=== PATIENT | female | born 1945 | race Caucasian/White ===

== ENCOUNTER → 2016-06-14 | Outpatient (CLI) | payer MEDICARE, MEDICAID ==
[~2016-06-14] MED LIST: ASA325 MG PO; BALANCED B-100100 MG PO; CALCIUM 600 +1 EAC3 PO; CELEXA DPS20 MG PO; CELEXA10 MG PO; CLARITIN DPS10 MG PO; COLACE-DPS100 MG PO; FEOSOL-DPS325 MG PO; KLONOPIN DPS0.5 MG PO; LORCET 5-325 M1 EACH PO; MAALOX DPS30 ML PO; MIRALAX PACKET17 GM PO; NORVASC5 MG PO; PERCOCET 5 DPS1 TAB PO; PROTONIX40 MG PO; REQUIP DPS2 MG PO; SENOKOT DPS8.6 MG PO; SENOKOT S1 TAB PO; SOD BICARB TAB650 MG PO; SURFAK DPS240 MG PO; SYNTHROID DP0.088 MG PO; THERA1 EACH PO; TUMS DPS500 MG PO; TYLENOL DPS325 MG PO; VISTARIL-DPS50 MG PO; ZOCOR DPS20 MG PO
== END | disposition home or self-care (01) ==
LOC: PTH.S 10:43
DX: Z01.812 Encounter for preprocedural laboratory examination (principal)

== ENCOUNTER 2016-06-22 09:58 | Inpatient (IN) | payer MEDICARE, MEDICAID ==
[~2016-06-22] VITALS: Ht 147.3 cm; Wt 79.9 kg
[~2016-06-22 09:58] MED LIST changes: -FEOSOL-DPS325 MG PO; -LORCET 5-325 M1 EACH PO
[2016-06-27] MEDS ORDERED: FEOSOL-DPS325 MG PO (11:23)
[2016-06-27] MEDS ORDERED: LORCET 5-325 M1 EACH PO (11:24)
--- NOTE | 2016-07-06 11:52 | OR ---
ADMIT: 06/22/2016 RM/LOC: [facility] MR#: [id number] [id number] [facility] [address] [place], [place] [address] [place] Donn [address] [address] Operative/Delivery Room Report SEX: F AGE: 71 : 1945 SURGERY DATE: 06/22/2016 SURGEON: Praful Cerrato MD PREOPERATIVE DIAGNOSIS: Right knee degenerative joint disease. POSTOPERATIVE DIAGNOSIS: Right knee degenerative joint disease. PROCEDURE: Right total knee arthroplasty with intra-articular local block. TRUCK WASHER: Sunny Nieves PA-C. ANESTHESIA: Spinal. ESTIMATED BLOOD LOSS: 50 mL. TOTAL TOURNIQUET TIME: 73 minutes. COMPLICATIONS: None. CONDITION: Fair to recovery room. INDICATION: The patient is a 71-year-old female, who is status post left total knee arthroplasty a couple months ago and has done very well with this. She is having significant severe pain in her right knee with degenerative joint disease and wants to proceed with right total knee arthroplasty as she has failed conservative treatment. We discussed the procedure as well as risks and benefits with her, questions were answered, and she agreed to proceed. IMPLANTS USED: We used a DePuy Sigma total knee arthroplasty size 2.5 Femoral component, size 2.5 tibial component, a 38 mm patellar button, and a 10 mm tibial insert. DESCRIPTION OF PROCEDURE: After informed consent was obtained, the patient was then taken to the operating room, placed on the operative table in supine position. The patient was then placed in a seated position. A spinal anesthetic was administered. After adequate spinal anesthesia, patient was replaced supine. A Talley catheter was placed and a tourniquet was placed on right upper thigh. Once this was completed, the right lower extremity was prepped and draped in the usual sterile fashion. We then exsanguinated the right lower extremity, inflated the tourniquet to 300 mmHg. The knee was then flexed. We made a midline incision through the skin and subcutaneous tissues making a bit of a medial flap here. Once this was completed, we then made a medial parapatellar incision to enter the knee joint. The suprapatellar synovitis and fat pad were excised at this point. Attention was then directed proximally where we did a medial release off the proximal tibia using Bovie electrocautery as well as a large elevator. Once this was completed, the patella was everted, knee flexed and we then excised the infrapatellar fat ADMIT: 06/22/2016 RM/LOC: [address] [facility] MR#: [id number] [address] [address] YVAN MOREIRA [address] [place] [id number] Operative/Delivery Room Report SEX: F AGE: 71 : 1945 pad. Medial and lateral retractors were then placed. The intramedullary drill was then placed in the femoral notch adjacent to the PCL insertion on the femur. We then drilled and placed the intramedullary guide. We then set this to remove 12 mm of distal bone and set at 5 degrees of valgus. This was then pinned into position and our distal femoral cut was then performed. Once this was completed, the tibial guide was then placed. Once this was in appropriate position, we pinned this and made our tibial cut. The tibial bone was then removed. The knee was then brought back into extension, placed a 10 mm extension block with good full extension and good stability with this. I then placed a construction project assistant and removed the remainder of the meniscus and other soft tissue here. Once this was all cleaned up, we then prepared the patella using the patellar cutting guide, set to remove 9.5 mm. We placed this on the patella clamp and everted the patella, and made our patellar cut, this sized to a size 38. We then drilled the lugs for the 38 patella. The knee was then flexed back up. We placed the femoral sizing guide and this sized to about a size 2.5. We then placed 2.5 four-in-one cutting guide after pinning this in 3 degrees of external rotation. We removed this 2 mm anteriorly and made our anterior, posterior, and chamfer cuts. Once this was completed, we then placed the box cutting guide for a size 2.5 Femoral component, pinned this into position and made our femoral box cut. Once this was completed, we then trialed using a 2.5 Femoral component, a size 2 tibial tray, and a 38 mm patellar button. We used a 10 mm tibial insert, good full extension, good flexion, excellent stability, and the patella did appear to track laterally here. We then performed a lateral release. The patella then tracked much better. Once this was completed, we removed the trial components. We once again flexed the knee up, placing medial and lateral retractors as well as a popliteal retractor, and sized the tibia to about a size 2.5. This was a good fit. We then placed a 2.5 Tibial tray, pinned this into position and prepared the proximal tibia using the reamer, followed by the keel punch. Once this was completed, the knee was then put back in extension, construction project assistant was placed, and we injected our local cocktail in the posterior medial and lateral capsules. Once this was completed, the components were then opened on the back table to include a 2.5 femoral component, a 2.5 tibial tray, and a 38 mm patellar button. The knee was then flexed back up. We copiously irrigated the cancellous bony ends using pulse lavage. We placed medial lateral popliteal retractors. We then dried the bone surfaces thoroughly. While we were doing this, the cement was being mixed on the back table and the components were opened on the table. Once the cement was ready, we finger packed this into the proximal tibia and into the keel hole. We then placed the tibial component, impacted this into position removing excess cement using a [place] elevator. Once this was completed, we placed cement onto the distal femur. I placed the femoral component, impacted this into position removing excess cement once again using a [place] elevator. We placed a 10 mm trial tibial insert, brought the knee into full extension, placed the heel on the table to let this cure. Once again, any excess cement was removed using a [place] elevator. Cement was then placed onto the patella, a 38 mm patellar button was placed followed by the patellar clamp. The excess cement was removed using a [place] elevator once again. Once this was completed, we ADMIT: 06/22/2016 RM/LOC: [address] [facility] MR#: [id number] [id number] [address] YVAN MOREIRA [address] [address] Operative/Delivery Room Report SEX: F AGE: 71 : 1945 copiously irrigated the knee once again. While the cement was curing, we injected additional local cocktail into the quad tendon, periosteum, and subcutaneous tissues. Once the cement was fully cured, we then took the knee through range of motion once again with good full extension, flexion past 120 degrees, excellent stability, and good tracking of the patella. The trial tibial component was then removed, and we elected to use a size 10 permanent tibial insert, tibial tray was thoroughly irrigated. The insert was placed into the tray impacted, and locked into position. The knee was copiously irrigated once again with pulse lavage. A medium Hemovac drain was then placed. We then closed the medial parapatellar incision using #1 Vicryl in a [id number] fashion. The subcutaneous tissues were then closed using 2-0 Vicryl in a simple interrupted fashion, and the skin with skin holli. A sterile compressive dressing was then applied consisting of Xeroform, plain gauze, ABDs, Webril, Woody wrap from the foot to the thigh. The patient was then transferred to recovery room in stable condition. Tourniquet was deflated for a total tourniquet time of 73 minutes at 300 mmHg. Praful Cerrato MD/ opal JOB #: [id number] CC: Praful Cerrato, Attending Physician Other Physician, Family Physician
--- NOTE | 2016-07-06 11:52 | HP ---
ADMIT: 06/22/2016 RM/LOC: [facility] MR#: [id number] [facility] [address] [place], [place] [address] YVAN MOREIRA [address] [address] Pre-OP History and Physical SEX: F AGE: 71 : 1945 DATE OF SERVICE: CHIEF COMPLAINT: Right knee pain. HISTORY OF PRESENT ILLNESS: The patient is a 71-year-old female, who is now over three months status post left total knee arthroplasty. Doing very well with this. She is having increased problems with her right knee at this point, interfering with activities. She is taking some tramadol for pain at this point and she would like to proceed with a right total knee arthroplasty causing her severe pain. Keeping her up at night. She is doing very well with her left knee replacement at this point. PAST MEDICAL HISTORY: Significant for elevated cholesterol, osteoarthritis, asthma, hypertension, and depression. CURRENT MEDICATIONS: Citalopram, senna, omeprazole, docusate sodium, loratadine, clonazepam, levothyroxine, ferrous sulfate, calcium, Lortab, ropinirole, simvastatin, amlodipine, omega-3, and Centrum Silver tablet. ALLERGIES: INCLUDE ASPIRIN. SOCIAL HISTORY: The patient is a former smoker. Drinks alcohol occasionally. Lives in [facility]. REVIEW OF SYSTEMS: Noncontributory. PHYSICAL EXAMINATION: HEENT: As per Dr. Vivar's preoperative medical evaluation. HEART: As per Dr. Vivar's preoperative medical evaluation. LUNGS: As per Dr. Vivar's preoperative medical evaluation. ABDOMEN: As per Dr. Vivar's preoperative medical evaluation. MUSCULOSKELETAL: Examination of the right knee shows mild varus alignment, tenderness in the medial knee, as well as the peripatellar region. Does have crepitus on knee range of motion. No gross instability, otherwise has pretty good range of motion, no difficulty short or full extension. Flexion about 125 degrees or so. IMAGING: X-rays of the right knee show severe degenerative change ADMIT: 06/22/2016 RM/LOC: [facility] MR#: [id number] [address] [address] YVAN MOREIRA [address] [address] Pre-OP History and Physical SEX: F AGE: 71 : 1945 particularly the medial compartment. Some laterally and some in the patellofemoral region. No acute fracture dislocations or other bony lesions noted. ASSESSMENT: Right knee degenerative joint disease. PLAN: At this point, the patient elected to proceed with a right total knee arthroplasty. We have scheduled this for her at [facility]. She is getting preop medical clearance by Dr. Vivar. We did discuss the procedure as well as risks and benefits with her at length. She is status post left total knee arthroplasty in the last couple months and is doing very well with this. Praful Cerrato MD/ opal JOB #: [id number] CC: Praful Cerrato, Attending Physician UNKNOWN, Family Physician
--- NOTE | 2016-07-07 08:23 | CO ---
ADMIT: 06/22/2016 RM/LOC: [facility] MR#: [id number] 26[address] [facility] [address] [place], [place] [address] YVAN MOREIRA [address] [address] Consultation Report SEX: F AGE: 71 : 1945 DATE OF CONSULTATION: 06/18/2016 ATTENDING PHYSICIAN: Praful Cerrato CONSULTING PHYSICIAN: Alexsander Vivar DO HISTORY OF PRESENT ILLNESS: This is a pleasant 71-year-old female patient, who presents today in preparation for left knee replacement. This will be performed by Dr. Cerrato on June 22. The patient has a medical history of hypothyroidism, anxiety, gastroesophageal reflux disease, restless legs syndrome, hyperlipidemia, hypertension, and chronic osteoarthritis. In January of 2016, she underwent a right knee replacement, which was uncomplicated and she is now back to proceed with her left knee. She denies any concerns in the interval. CURRENT MEDICINES: 1. Amlodipine. 2. Citalopram. 3. Levothyroxine. 4. Omeprazole. 5. Sodium bicarbonate. 6. Simvastatin. 7. Clonazepam. 8. Ropinirole. 9. Tramadol. 10.Loratadine. 11.Calcium. 12.Docusate. 13.Senna. 14.Ventolin. For specifics of dosing, please refer to her admission orders. SOCIAL HISTORY: She is independent but does have family available to help her with her postoperative cares. REVIEW OF SYSTEMS: She denies chest pain, shortness of breath, cough, sputum production. No fevers, chills, nausea, vomiting, diarrhea, constipation, hematemesis, hematochezia, or melena. PHYSICAL EXAMINATION: GENERAL: She is pleasant, alert, and in no apparent distress. VITAL SIGNS: Her blood pressure is 128/74, she weighs 160 pounds with a body mass index of 32.3. EAR, NOSE, AND THROAT: Normal. NECK: No JVD or bruit. HEART: Regular. LUNGS: Clear. ABDOMEN: Soft, nontender. EXTREMITIES: Reveal no edema and good pulses. ADMIT: 06/22/2016 RM/LOC: [facility] MR#: [id number] [address] [address] [place] [address] Consultation Report SEX: F AGE: 71 : 1945 LABORATORY DATA: Reviewed and she is moderately anemic with a hemoglobin of 10.4, which I suspect relates to her prior surgery and operative blood losses. She has otherwise healthy basic metabolic profile. IMPRESSION: 1. Hypertension, controlled. 2. Hypothyroidism. 3. Reflux. 4. Osteoarthritis. 5. Anemia. PLAN: I am going to use aspirin DVT prophylaxis. We will put her on iron now in preparation for her surgery on the . I will monitor her hemoglobin postoperatively. Alexsander Vivar DO/ opal JOB #: [id number] CC: Praful Cerrato, Attending Physician UNKNOWN, Family Physician
--- NOTE | 2016-07-23 09:25 | DS ---
ADMIT: 06/22/2016 RM/LOC: 530 [facility] MR#: [id number] [id number] [facility] [address] [place], [place] [address] YVAN MOREIRA [address] [address] General Discharge Summary SEX: F AGE: 71 : 1945 ADMISSION DATE: 06/22/2016 DISCHARGE DATE: 06/25/2016 REASON FOR ADMISSION: Elective right total knee arthroplasty after failing conservative care. PREOPERATIVE DIAGNOSIS: Right knee degenerative joint disease. POSTOPERATIVE DIAGNOSIS: Right knee degenerative joint disease. PROCEDURE PERFORMED: Right total knee arthroplasty. SURGEON: Praful Cerrato MD. ENGINE ROOM HELPER: Sunny Nieves PA-C. ANESTHESIA: Spinal. ESTIMATED BLOOD LOSS: 50 mL. COMPLICATIONS: None. ACTIVE MEDICAL PROBLEMS: Hypothyroidism, anxiety, gastroesophageal reflux disease, restless legs syndrome, hyperlipidemia, hypertension, chronic osteoarthritis. HOSPITAL COURSE: The patient was admitted on 06/22/2016, for elective right total knee arthroplasty done successfully without any complications by Dr. Cerrato. The patient tolerated the procedure well. Postoperatively, the patient complained of significant pain in her right knee as well as leg cramping. For this reason, Ultram, Tylenol, and oxycodone were discontinued and she was started on Percocet 5/325 mg as well as Vistaril 50 mg for pain, nausea, restlessness, itching, and rash. We also decided to hold physical therapy until the afternoon to give time for the pain medication to help with her pain control. Toradol 15 mg IV was also given per Dr. Cerrato to help with pain control that afternoon on postop day #1. On postop day #2, her pain was under better control and physical therapy resumed as normal per total knee arthroplasty protocol. She did as expected suffered from some mild acute blood- loss anemia. Her hemoglobin dropped to 9.1 on 06/25/2016, but she remained hemodynamically stable and not require blood transfusion. By postoperative day #3, she was safe and participated well with physical therapy. She was stable and ready for discharge home with plans for outpatient physical therapy. DISCHARGE MEDICATIONS: 1. Amlodipine 5 mg in the morning. 2. Levothyroxine 88 mcg every morning. 3. Citalopram 30 mg every morning. 4. Simvastatin 20 mg at bedtime. ADMIT: 06/22/2016 RM/LOC: 530 [facility] MR#: [id number] [address] [address] YVAN MOREIRA [address] [place] [address] General Discharge Summary SEX: F AGE: 71 : 1945 5. Clonazepam 0.5 mg at bedtime. 6. Ropinirole 2 mg at bedtime. 7. Loratadine 10 mg every morning. 8. Calcium 600 mg twice daily. 9. Senna 8.6 mg two tablets twice daily. 10.Aspirin 325 mg at bedtime for six weeks. 11.Iron 325 mg everyday. 12.MiraLax 17 g daily as needed. 13.Protonix 40 mg at bedtime for six weeks. 14.Hydrocodone/acetaminophen 5/325 mg one to two tablets every 4 to 6 hours as needed for pain. DISCHARGE INSTRUCTIONS: The patient was discharged home with plans for outpatient physical therapy per total knee arthroplasty protocol. Follow up in the orthopedic office in 2 weeks for wound check, in 6 weeks with x-ray. Follow up with primary care as directed. DAMI Newsome / Praful Cerrato MD / opal JOB #: [id number] CC: Praful Cerrato MD, Attending Physician Other Physician, Family Physician
== END 2016-06-25 12:35 | disposition home or self-care (01) | DRG 470 ==
LOC: 5MS 09:58 → WOR 09:58 → 5MS 13:16
PROVIDERS: ADMIT Orthopaedic Surgery
PROC: 0SRC0J9 Replacement of Right Knee Joint with Synthetic Substitute, Cemented, Open Approach (ICD-10-PCS; principal; 2016-06-22)
DX: M17.11 Unilateral primary osteoarthritis, right knee (principal); D03.9 Melanoma in situ, unspecified; D62 Acute posthemorrhagic anemia; I10 Essential (primary) hypertension; F32.9 Major depressive disorder, single episode, unspecified; D64.9 Anemia, unspecified; E03.9 Hypothyroidism, unspecified; J45.909 Unspecified asthma, uncomplicated; F41.9 Anxiety disorder, unspecified; K21.9 Gastro-esophageal reflux disease without esophagitis; G25.81 Restless legs syndrome; E78.5 Hyperlipidemia, unspecified; Z96.651 Presence of right artificial knee joint; Z87.891 Personal history of nicotine dependence